=== PATIENT | male | born 1965 | race Caucasian/White ===

== ENCOUNTER 2019-02-12 18:28 | Emergency (ER) | payer OTHER ==
[~2019-02-12] VITALS: Ht 182.9 cm; Wt 111.1 kg
[~2019-02-12 18:28] MED LIST: CIPRO500 MG PO; COLACE100 MG PO; FLAGYL500 MG PO; HYDROCODONE-AP1 EAC6 PO; IBUPROFEN 800800 M1 PO; MIRALAX255 GM PO; NORCO 5-325 TA1 EACH PO
[2019-02-12] MEDS ORDERED: IBUPROFEN 800800 M1 PO (19:29)
[2019-02-12] MEDS ORDERED: KEFLEX500 M1 PO (19:29)
[2019-02-12 19:42] VITALS: BP 143/106
== END 2019-02-12 19:44 | disposition home or self-care (01) ==
LOC: M.ERS 18:28
DX: S61.412A Laceration without foreign body of left hand, initial encounter (principal); Z88.6 Allergy status to analgesic agent; W22.8XXA Striking against or struck by other objects, initial encounter; Y92.89 Other specified places as the place of occurrence of the external cause; Y93.89 Activity, other specified; Y99.8 Other external cause status